=== PATIENT | male | born 1975 | race Caucasian/White ===

== ENCOUNTER 2022-07-05 23:38 | Inpatient (IN) | payer OTHER ==
[2022-07-06] MEDS ORDERED: levETIRAcetam 500 MG/5 ML INJECTION VIAL IVPB ONE ×4 (00:02→10:43)
[2022-07-06 00:59] LABS: BASO % 0.7 % (0-2.0); EOS % 1.4 % (0-4.5); HEMATOCRIT 38.5 % (35.4-49); LYMPH % 24.7 % (8-40); MCH 32.5 pg (25.7-33.7); MCHC 33.8 g/dl (32.0-35.9); MEAN CELL VOLUME 96.3 fl (80-96); MEAN PLT VOLUME 9.4 fl (7.5-11.1); MONO % 11.3 % (3.8-10.2); NEUT % 61.9 % (42.8-82.8); PLATELET COUNT 233 10^3/uL (134-434); RDW 12.9 % (11.9-15.9); WHITE BLOOD COUNT 6.9 K/mm3 (4.0-10.0)
[2022-07-06 01:20] LABS: ALBUMIN 3.6 g/dl (3.4-5.0); BLOOD UREA NITROGEN 13.8 mg/dL (7-18); CALCIUM 8.6 mg/dL (8.5-10.1)
[2022-07-06 01:24] LABS: CREATININE 0.6 mg/dL (0.55-1.3)
[2022-07-06 01:26] LABS: BILIRUBIN,TOTAL 0.8 mg/dL (0.2-1); TOT PROT 6.8 g/dl (6.4-8.2)
[2022-07-06] MEDS ORDERED: SODIUM CHLORIDE 1,000 ML IV STA (04:27)
[2022-07-06] MEDS ORDERED: NICOTINE 14 MG/24 HOURS TOPICAL PATCH TD PRN (06:29)
[2022-07-06 08:20] LABS: HEMATOCRIT 38.6 % (35.4-49); MCH 32.6 pg (25.7-33.7); MCHC 33.7 g/dl (32.0-35.9); MEAN CELL VOLUME 96.6 fl (80-96); MEAN PLT VOLUME 9.8 fl (7.5-11.1); PLATELET COUNT 223 10^3/uL (134-434); RDW 12.5 % (11.9-15.9); WHITE BLOOD COUNT 5.7 K/mm3 (4.0-10.0)
[2022-07-06 08:46] LABS: CHLORIDE 106 mmol/L (98-107); SODIUM 138 mmol/L (136-145)
[2022-07-06 08:49] LABS: ALBUMIN 3.4 g/dl (3.4-5.0); ANION GAP 3 MMOL/L (8-16); CALCIUM 8.7 mg/dL (8.5-10.1); CO2 29 mmol/L (21-32)
[2022-07-06 08:50] LABS: BLOOD UREA NITROGEN 12.6 mg/dL (7-18); GLUCOSE,RANDOM 74 mg/dL (74-106)
[2022-07-06 08:53] LABS: BILIRUBIN,TOTAL 0.7 mg/dL (0.2-1); CREATININE 0.6 mg/dL (0.55-1.3); PHOSPHOROUS 3.4 mg/dL (2.5-4.9); SGOT/AST 22 U/L (15-37); SGPT/ALT 16 U/L (13-61); TOT PROT 6.4 g/dl (6.4-8.2)
[2022-07-06 08:54] LABS: ALK PHOS 60 U/L (45-117)
[2022-07-06] MEDS ORDERED: LORazepam 1 MG TABLET PO PRN (10:08)
[2022-07-06] MEDS ORDERED: LORazepam 2 MG/ML SDV VIAL IVPUSH ONE (10:30)
[2022-07-06] MEDS ORDERED: LORazepam 2 MG/ML SDV VIAL IVPB PRN (10:31)
[2022-07-06] MEDS ORDERED: ENOXAPARIN NA (PORCINE) 40 MG/0.4 ML DISP.SYRIN SQ ONE (10:36)
[2022-07-06] MEDS ORDERED: NICOTINE 14 MG/24 HOURS TOPICAL PATCH TD ONE (10:36)
[2022-07-06] MEDS: ENOXAPARIN NA (PORCINE) 40 MG/0.4 ML DISP.SYRIN SQ SCH (10:49)
[2022-07-06] MEDS: levETIRAcetam 500 MG/5 ML INJECTION VIAL IVPB SCH ×3 (10:49→23:00)
[2022-07-06 15:04] VITALS: BMI 18.8
[2022-07-06] MEDS ORDERED: ACETAMINOPHEN 1000 MG/100 ML BAG IVPB PRN (20:36)
[2022-07-07] MEDS: ENOXAPARIN NA (PORCINE) 40 MG/0.4 ML DISP.SYRIN SQ SCH (09:10)
[2022-07-07] MEDS: levETIRAcetam 500 MG/5 ML INJECTION VIAL IVPB SCH ×2 (09:10→23:13)
[2022-07-07] MEDS: LORazepam 2 MG/ML SDV VIAL IVPB PRN ×2 (09:11→19:31)
[2022-07-07] MEDS ORDERED: chlordiazePOXIDE HCL 25 MG CAPSULE PO PRN (12:51)
[2022-07-07] MEDS: chlordiazePOXIDE HCL 25 MG CAPSULE PO SCH ×3 (13:23→23:12)
[2022-07-07] MEDS ORDERED: PHENobarbital SODIUM 65 MG/1 ML VIAL IVPB ONE (19:30)
[2022-07-07] MEDS ORDERED: LORazepam 2 MG/ML SDV VIAL IVPB PRN (19:34)
[2022-07-07] MEDS ORDERED: LORazepam 2 MG/ML SDV VIAL IVPUSH ONE ×2 (19:38→21:39)
[2022-07-07] MEDS ORDERED: SODIUM CHLORIDE 1,000 ML IV STA ×2 (19:42→19:50)
[2022-07-07 21:03] LABS: METHADONE, UR NEGATIVE (NEGATIVE); URINE AMPHETAMINES NEGATIVE (NEGATIVE)
[2022-07-07 21:04] LABS: COCAINE, UR NEGATIVE (NEGATIVE); OPIATES, URI NEGATIVE (NEGATIVE); PHENCYCLIDINE,URINE NEGATIVE (NEGATIVE)
[2022-07-07 21:12] LABS: URINE APPEARANCE CLEAR; URINE BILIRUBIN NEGATIVE (NEGATIVE); URINE COLOR DK YELLOW; URINE GLUCOSE (UA) NEGATIVE (NEGATIVE); URINE KETONE TRACE (NEGATIVE); URINE LEUK ESTERASE NEGATIVE (NEGATIVE); URINE NITRITE NEGATIVE (NEGATIVE); URINE PROTEIN TRACE (NEGATIVE)
[2022-07-07 21:23] LABS: URINE BARBITURATES POSITIVE (NEGATIVE); URINE BENZODIAZEPINES POSITIVE (NEGATIVE)
[2022-07-07] MEDS: NICOTINE 21 MG/24 HOURS TOPICAL PATCH TD SCH (23:11)
[2022-07-07] MEDS: THIAMINE HCL 200 MG/2 ML VIAL IVPB SCH (23:12)
[2022-07-07] MEDS: PHENobarbital SODIUM 65 MG/1 ML VIAL IVPUSH SCH (23:14)
[2022-07-08] MEDS: KCL 10 MEQ IVPB 10 MEQ/100 ML INFUS.BAG IVPB SCH ×5 (02:18→05:44)
[2022-07-08] MEDS: SODIUM CHLORIDE 1,000 ML IV SCH ×2 (02:18→22:01)
[2022-07-08] MEDS: chlordiazePOXIDE HCL 25 MG CAPSULE PO SCH ×6 (05:44→22:41)
[2022-07-08] MEDS: PHENobarbital SODIUM 65 MG/1 ML VIAL IVPUSH SCH ×3 (06:11→17:08)
[2022-07-08] MEDS: THIAMINE HCL 200 MG/2 ML VIAL IVPB SCH ×3 (06:12→22:01)
[2022-07-08] MEDS: ENOXAPARIN NA (PORCINE) 40 MG/0.4 ML DISP.SYRIN SQ SCH (09:36)
[2022-07-08] MEDS: levETIRAcetam 500 MG/5 ML INJECTION VIAL IVPB SCH ×2 (09:36→21:29)
[2022-07-08] MEDS: NICOTINE 21 MG/24 HOURS TOPICAL PATCH TD SCH (09:36)
[2022-07-08] MEDS ORDERED: LORazepam 2 MG/ML SDV VIAL IVPUSH ONE ×2 (10:15→11:00)
[2022-07-08] MEDS ORDERED: HALOPERIDOL LACTATE 5 MG/ML IM ONE ×2 (10:33→10:45)
[2022-07-08] MEDS ORDERED: HALOPERIDOL LACTATE 5 MG/ML IM PRN (14:30)
[2022-07-09] MEDS: chlordiazePOXIDE HCL 25 MG CAPSULE PO SCH ×4 (04:11→21:39)
[2022-07-09] MEDS: THIAMINE HCL 200 MG/2 ML VIAL IVPB SCH ×3 (05:34→23:11)
[2022-07-09] MEDS: NICOTINE 21 MG/24 HOURS TOPICAL PATCH TD SCH (09:50)
[2022-07-09] MEDS: ENOXAPARIN NA (PORCINE) 40 MG/0.4 ML DISP.SYRIN SQ SCH (09:50)
[2022-07-09] MEDS: levETIRAcetam 500 MG/5 ML INJECTION VIAL IVPB SCH ×2 (09:50→21:38)
[2022-07-09 12:20] LABS: BASO % 0.6 % (0-2.0); EOS % 1.5 % (0-4.5); HEMATOCRIT 40.7 % (35.4-49); HEMOGLOBIN 13.7 GM/dL (11.7-16.9); LYMPH % 14.9 % (8-40); MCH 32.1 pg (25.7-33.7); MCHC 33.7 g/dl (32.0-35.9); MEAN CELL VOLUME 95.3 fl (80-96); MEAN PLT VOLUME 9.5 fl (7.5-11.1); MONO % 7.1 % (3.8-10.2); NEUT % 75.9 % (42.8-82.8); PLATELET COUNT 210 10^3/uL (134-434); RBC 4.27 M/mm3 (4.00-5.60); RDW 12.4 % (11.9-15.9); WHITE BLOOD COUNT 6.1 K/mm3 (4.0-10.0)
[2022-07-09 12:52] LABS: ALBUMIN 3.2 g/dl (3.4-5.0); BLOOD UREA NITROGEN 3.6 mg/dL (7-18); CALCIUM 8.4 mg/dL (8.5-10.1); MAGNESIUM 1.8 mg/dL (1.8-2.4)
[2022-07-09 12:55] LABS: CREATININE 0.6 mg/dL (0.55-1.3)
[2022-07-09 12:57] LABS: BILIRUBIN,TOTAL 0.4 mg/dL (0.2-1)
[2022-07-09] MEDS ORDERED: chlordiazePOXIDE HCL 25 MG CAPSULE PO PRN (18:30)
[2022-07-09] MEDS ORDERED: LORazepam 2 MG/ML SDV VIAL IVPB PRN (18:30)
[2022-07-09] MEDS ORDERED: HALOPERIDOL LACTATE 5 MG/ML IM PRN (18:30)
[2022-07-09] MEDS: LORazepam 2 MG/ML SDV VIAL IVPB PRN (20:00)
[2022-07-09] MEDS ORDERED: PHENobarbital SODIUM 65 MG/1 ML VIAL IVPUSH ONE (20:19)
[2022-07-09] MEDS ORDERED: LORazepam 2 MG/ML SDV VIAL IVPUSH ONE (20:27)
[2022-07-09] MEDS ORDERED: levETIRAcetam 500 MG TABLET (FP) PO SCH (22:00)
[2022-07-09] MEDS ORDERED: chlordiazePOXIDE HCL 25 MG CAPSULE PO SCH (23:00)
[2022-07-10] MEDS ORDERED: chlordiazePOXIDE HCL 10 MG CAPSULE PO PRN ×2
[2022-07-10] MEDS: PHENobarbital SODIUM 65 MG/1 ML VIAL IVPUSH SCH ×3 (00:56→11:53)
[2022-07-10] MEDS ORDERED: chlordiazePOXIDE HCL 10 MG CAPSULE PO SCH ×2 (05:00)
[2022-07-10] MEDS: chlordiazePOXIDE HCL 25 MG CAPSULE PO SCH ×2 (05:26→17:11)
[2022-07-10] MEDS: THIAMINE HCL 200 MG/2 ML VIAL IVPB SCH ×3 (05:27→22:55)
[2022-07-10] MEDS: ENOXAPARIN NA (PORCINE) 40 MG/0.4 ML DISP.SYRIN SQ SCH (09:22)
[2022-07-10] MEDS: NICOTINE 21 MG/24 HOURS TOPICAL PATCH TD SCH (09:22)
[2022-07-10] MEDS: levETIRAcetam 500 MG/5 ML INJECTION VIAL IVPB SCH ×2 (09:23→21:38)
[2022-07-10 15:28] LABS: BASO % 0.3 % (0-2.0); EOS % 1.1 % (0-4.5); HEMOGLOBIN 13.9 GM/dL (11.7-16.9); LYMPH % 17.3 % (8-40); MCH 32.7 pg (25.7-33.7); MEAN CELL VOLUME 95.9 fl (80-96); MEAN PLT VOLUME 9.6 fl (7.5-11.1); MONO % 7.2 % (3.8-10.2); NEUT % 74.1 % (42.8-82.8); PLATELET COUNT 210 10^3/uL (134-434); RBC 4.27 M/mm3 (4.00-5.60); RDW 12.6 % (11.9-15.9); WHITE BLOOD COUNT 7.2 K/mm3 (4.0-10.0)
[2022-07-10 15:45] LABS: BLOOD UREA NITROGEN 5.9 mg/dL (7-18)
[2022-07-10 15:46] LABS: ALBUMIN 3.3 g/dl (3.4-5.0); MAGNESIUM 1.8 mg/dL (1.8-2.4)
[2022-07-10 15:49] LABS: CREATININE 0.9 mg/dL (0.55-1.3)
[2022-07-10 15:50] LABS: BILIRUBIN,TOTAL 0.4 mg/dL (0.2-1); TOT PROT 6.5 g/dl (6.4-8.2)
[2022-07-10] MEDS: LORazepam 2 MG/ML SDV VIAL IVPB PRN (18:23)
[2022-07-11] MEDS: chlordiazePOXIDE HCL 25 MG CAPSULE PO SCH ×5 (00:23→22:27)
[2022-07-11] MEDS ORDERED: chlordiazePOXIDE HCL 10 MG CAPSULE PO SCH ×2 (05:00)
[2022-07-11] MEDS: THIAMINE HCL 200 MG/2 ML VIAL IVPB SCH ×3 (05:25→22:34)
[2022-07-11] MEDS: levETIRAcetam 500 MG/5 ML INJECTION VIAL IVPB SCH (10:18)
[2022-07-11] MEDS: NICOTINE 21 MG/24 HOURS TOPICAL PATCH TD SCH (10:19)
[2022-07-11] MEDS: ENOXAPARIN NA (PORCINE) 40 MG/0.4 ML DISP.SYRIN SQ SCH (10:20)
[2022-07-11] MEDS: LORazepam 2 MG/ML SDV VIAL IVPB PRN (21:33)
[2022-07-11] MEDS ORDERED: HALOPERIDOL LACTATE 5 MG/ML IM ONE (22:16)
[2022-07-11] MEDS: levETIRAcetam 500 MG TABLET (FP) PO SCH (22:26)
[2022-07-11] MEDS: PHENobarbital SODIUM 65 MG/1 ML VIAL IVPUSH ONE (22:42)
[2022-07-11] MEDS ORDERED: PHENobarbital SODIUM 65 MG/1 ML VIAL IVPB ONE (23:00)
[2022-07-12] MEDS: PHENobarbital SODIUM 65 MG/1 ML VIAL IVPUSH ONE
[2022-07-12] MEDS ORDERED: chlordiazePOXIDE HCL 10 MG CAPSULE PO ONE ×2 (05:00)
[2022-07-12] MEDS: chlordiazePOXIDE HCL 25 MG CAPSULE PO SCH ×2 (05:19→10:18)
[2022-07-12] MEDS: THIAMINE HCL 200 MG/2 ML VIAL IVPB SCH (05:21)
[2022-07-12] MEDS: NICOTINE 21 MG/24 HOURS TOPICAL PATCH TD SCH (10:16)
[2022-07-12] MEDS: MULTIVITAMINS (DAILY MVI) TABLET (FP) PO SCH (10:16)
[2022-07-12] MEDS: ENOXAPARIN NA (PORCINE) 40 MG/0.4 ML DISP.SYRIN SQ SCH (10:16)
[2022-07-12] MEDS: levETIRAcetam 500 MG TABLET (FP) PO SCH ×2 (10:16→22:34)
[2022-07-12] MEDS ORDERED: chlordiazePOXIDE HCL 25 MG CAPSULE PO SCH (12:45)
[2022-07-12] MEDS: chlordiazePOXIDE HCL 10 MG CAPSULE PO SCH ×3 (14:51→22:33)
[2022-07-12] MEDS: THIAMINE HCL 100 MG TABLET (FP) PO SCH (16:50)
[2022-07-13 08:30] LABS: BASO % 0.5 % (0-2.0); EOS % 1.2 % (0-4.5); HEMATOCRIT 41.7 % (35.4-49); HEMOGLOBIN 14.2 GM/dL (11.7-16.9); LYMPH % 28.2 % (8-40); MCH 32.4 pg (25.7-33.7); MEAN CELL VOLUME 95.4 fl (80-96); MEAN PLT VOLUME 10.1 fl (7.5-11.1); MONO % 8.8 % (3.8-10.2); NEUT % 61.3 % (42.8-82.8); PLATELET COUNT 226 10^3/uL (134-434); RBC 4.37 M/mm3 (4.00-5.60); RDW 12.2 % (11.9-15.9)
[2022-07-13 08:44] LABS: ALBUMIN 3.5 g/dl (3.4-5.0); BLOOD UREA NITROGEN 12.9 mg/dL (7-18); CALCIUM 8.9 mg/dL (8.5-10.1)
[2022-07-13 08:48] LABS: BILIRUBIN,TOTAL 0.4 mg/dL (0.2-1); CREATININE 0.7 mg/dL (0.55-1.3)
[2022-07-13 08:49] LABS: TOT PROT 6.8 g/dl (6.4-8.2)
[2022-07-13] MEDS: levETIRAcetam 500 MG TABLET (FP) PO SCH ×2 (09:30→21:35)
[2022-07-13] MEDS: chlordiazePOXIDE HCL 10 MG CAPSULE PO SCH (09:30)
[2022-07-13] MEDS: ENOXAPARIN NA (PORCINE) 40 MG/0.4 ML DISP.SYRIN SQ SCH (09:30)
[2022-07-13] MEDS: THIAMINE HCL 100 MG TABLET (FP) PO SCH (09:31)
[2022-07-13] MEDS: MULTIVITAMINS (DAILY MVI) TABLET (FP) PO SCH (09:31)
[2022-07-13] MEDS: NICOTINE 21 MG/24 HOURS TOPICAL PATCH TD SCH (09:31)
[2022-07-13] MEDS ORDERED: chlordiazePOXIDE HCL 10 MG CAPSULE PO PRN (09:40)
[2022-07-14] MEDS: MULTIVITAMINS (DAILY MVI) TABLET (FP) PO SCH (09:15)
[2022-07-14] MEDS: levETIRAcetam 500 MG TABLET (FP) PO SCH ×2 (09:15→21:06)
[2022-07-14] MEDS: THIAMINE HCL 100 MG TABLET (FP) PO SCH (09:16)
[2022-07-14] MEDS: NICOTINE 21 MG/24 HOURS TOPICAL PATCH TD SCH (09:16)
[2022-07-14] MEDS: ENOXAPARIN NA (PORCINE) 40 MG/0.4 ML DISP.SYRIN SQ SCH (09:16)
[2022-07-14] MEDS ORDERED: chlordiazePOXIDE 5 MG CAPSULE PO PRN (15:09)
[2022-07-15 06:41] VITALS: RESP 18
[2022-07-15 07:19] LABS: BASO % 0.5 % (0-2.0); EOS % 1.4 % (0-4.5); HEMATOCRIT 42.3 % (35.4-49); HEMOGLOBIN 14.5 GM/dL (11.7-16.9); LYMPH % 34.6 % (8-40); MCH 32.4 pg (25.7-33.7); MCHC 34.2 g/dl (32.0-35.9); MEAN CELL VOLUME 94.9 fl (80-96); MEAN PLT VOLUME 10.2 fl (7.5-11.1); MONO % 9.8 % (3.8-10.2); NEUT % 53.7 % (42.8-82.8); PLATELET COUNT 253 10^3/uL (134-434); RBC 4.46 M/mm3 (4.00-5.60); RDW 12.1 % (11.9-15.9); WHITE BLOOD COUNT 5.5 K/mm3 (4.0-10.0)
[2022-07-15 07:43] LABS: CALCIUM 9.3 mg/dL (8.5-10.1)
[2022-07-15 07:44] LABS: BLOOD UREA NITROGEN 18.9 mg/dL (7-18)
[2022-07-15 07:47] LABS: CREATININE 0.7 mg/dL (0.55-1.3)
[2022-07-15] MEDS: MULTIVITAMINS (DAILY MVI) TABLET (FP) PO SCH (09:34)
[2022-07-15] MEDS: THIAMINE HCL 100 MG TABLET (FP) PO SCH (09:34)
[2022-07-15] MEDS: levETIRAcetam 500 MG TABLET (FP) PO SCH (09:35)
[2022-07-15] MEDS: NICOTINE 21 MG/24 HOURS TOPICAL PATCH TD SCH (09:35)
[2022-07-15] MEDS: ENOXAPARIN NA (PORCINE) 40 MG/0.4 ML DISP.SYRIN SQ SCH (09:35)
[2022-07-15 18:26] VITALS: BP 105/81; PULSE 55; TEMP 97.6
== END 2022-07-15 19:26 | disposition left against medical advice (07) | DRG 53 ==
LOC: JER 23:38 → JERBED 07-06 02:18 → OBSVTOIN 07-06 04:46 → JERBED 07-06 13:59 → J8W 07-06 14:45 → J4S 07-08 18:15
PROVIDERS: ADMIT Internal Medicine; ATTEND Internal Medicine
DX: G40.909 Epilepsy, unspecified, not intractable, without status epilepticus (principal); F17.210 Nicotine dependence, cigarettes, uncomplicated; R42 Dizziness and giddiness; R45.6 Violent behavior; F10.10 Alcohol abuse, uncomplicated; R00.1 Bradycardia, unspecified
CPT/HCPCS: 0241U-QW; 36415; 70450-TC; 80048; 80053; 80177; 80307; 81003; 82550; 82553; 82962; 83605; 83735; 84100; 85025; 85027; 93005; 93010; 93306-TC; 97116-GP; 97162-GP; 99285-25; G0378

== ENCOUNTER 2022-08-19 18:38 | Inpatient (IN) | payer OTHER ==
[2022-08-19] MEDS ORDERED: levETIRAcetam 500 MG/5 ML INJECTION VIAL IVPB ONE ×2 (19:19)
[2022-08-19] MEDS ORDERED: LORazepam 2 MG/ML SDV VIAL IVPUSH ONE (19:19)
[2022-08-19] MEDS ORDERED: SODIUM CHLORIDE 0.9% 500 ML INFUS.BAG IV ONE (20:05)
[2022-08-19 21:43] LABS: EOS % 1.3 % (0-4.5); HEMATOCRIT 37.2 % (35.4-49); HEMOGLOBIN 12.7 GM/dL (11.7-16.9); LYMPH % 32.2 % (8-40); MCH 31.8 pg (25.7-33.7); MCHC 34.2 g/dl (32.0-35.9); MEAN PLT VOLUME 9.1 fl (7.5-11.1); MONO % 7.3 % (3.8-10.2); NEUT % 58.2 % (42.8-82.8); PLATELET COUNT 237 10^3/uL (134-434); RBC 4.01 M/mm3 (4.00-5.60); RDW 12.2 % (11.9-15.9); WHITE BLOOD COUNT 6.6 K/mm3 (4.0-10.0)
[2022-08-19 22:04] LABS: URINE APPEARANCE CLEAR; URINE BILIRUBIN NEGATIVE (NEGATIVE); URINE COLOR YELLOW; URINE GLUCOSE (UA) NEGATIVE (NEGATIVE); URINE KETONE NEGATIVE (NEGATIVE); URINE LEUK ESTERASE NEGATIVE (NEGATIVE); URINE NITRITE NEGATIVE (NEGATIVE); URINE PROTEIN NEGATIVE (NEGATIVE)
[2022-08-19 22:09] LABS: CHLORIDE 109 mmol/L (98-107); SODIUM 139 mmol/L (136-145)
[2022-08-19 22:11] LABS: CALCIUM 8.5 mg/dL (8.5-10.1)
[2022-08-19 22:12] LABS: ALBUMIN 3.2 g/dl (3.4-5.0); ANION GAP 5 MMOL/L (8-16); BLOOD UREA NITROGEN 15.4 mg/dL (7-18); CO2 26 mmol/L (21-32); GLUCOSE,RANDOM 93 mg/dL (74-106)
[2022-08-19 22:15] LABS: CREATININE 0.5 mg/dL (0.55-1.3); SGOT/AST 17 U/L (15-37); SGPT/ALT 16 U/L (13-61)
[2022-08-19 22:17] LABS: BILIRUBIN,TOTAL 0.2 mg/dL (0.2-1); TOT PROT 6.5 g/dl (6.4-8.2)
[2022-08-19 22:18] LABS: ALK PHOS 88 U/L (45-117)
[2022-08-19 22:25] LABS: COCAINE, UR NEGATIVE (NEGATIVE); OPIATES, URI NEGATIVE (NEGATIVE)
[2022-08-19 22:26] LABS: METHADONE, UR NEGATIVE (NEGATIVE); PHENCYCLIDINE,URINE NEGATIVE (NEGATIVE); URINE AMPHETAMINES NEGATIVE (NEGATIVE); URINE BARBITURATES NEGATIVE (NEGATIVE); URINE BENZODIAZEPINES NEGATIVE (NEGATIVE)
[2022-08-19 22:42] LABS: ARTERIAL BLD GAS O2 SATURATION 96.9 % (95-98); ARTERIAL BLOOD GAS BASE EXCESS -1.4 mmol/L (-2-2); ARTERIAL BLOOD GAS PO2 91.5 mmHg (80-100)
[2022-08-20 03:29] VITALS: BMI 18.9
[2022-08-20 09:12] LABS: HEMATOCRIT 39.5 % (35.4-49); HEMOGLOBIN 13.4 GM/dL (11.7-16.9); MCH 31.3 pg (25.7-33.7); MCHC 33.9 g/dl (32.0-35.9); MEAN CELL VOLUME 92.1 fl (80-96); MEAN PLT VOLUME 9.9 fl (7.5-11.1); PLATELET COUNT 261 10^3/uL (134-434); RBC 4.29 M/mm3 (4.00-5.60); RDW 12.2 % (11.9-15.9); WHITE BLOOD COUNT 5.8 K/mm3 (4.0-10.0)
[2022-08-20 09:19] LABS: CALCIUM 8.7 mg/dL (8.5-10.1)
[2022-08-20 09:20] LABS: ALBUMIN 3.2 g/dl (3.4-5.0); BLOOD UREA NITROGEN 12.6 mg/dL (7-18)
[2022-08-20 09:23] LABS: CREATININE 0.6 mg/dL (0.55-1.3)
[2022-08-20 09:24] LABS: BILIRUBIN,TOTAL 0.5 mg/dL (0.2-1); MAGNESIUM 1.9 mg/dL (1.8-2.4); TOT PROT 6.5 g/dl (6.4-8.2)
[2022-08-20] MEDS ORDERED: FOLIC ACID 1 MG TABLET (FP) PO SCH (10:00)
[2022-08-20] MEDS: LORazepam 2 MG/ML SDV VIAL IVPUSH PRN (11:22)
[2022-08-20] MEDS: THIAMINE HCL 100 MG TABLET (FP) PO SCH (11:22)
[2022-08-20] MEDS: levETIRAcetam 500 MG TABLET (FP) PO SCH ×2 (11:22→22:01)
[2022-08-20] MEDS: ENOXAPARIN NA (PORCINE) 40 MG/0.4 ML DISP.SYRIN SQ SCH (11:22)
[2022-08-20] MEDS: MULTIVITAMINS (DAILY MVI) TABLET (FP) PO SCH (11:22)
[2022-08-20] MEDS: PRIMIDONE 50 MG TABLET PO SCH (22:01)
[2022-08-21 09:34] LABS: BASO % 0.5 % (0-2.0); EOS % 0.3 % (0-4.5); HEMOGLOBIN 14.1 GM/dL (11.7-16.9); LYMPH % 24.6 % (8-40); MCH 31.6 pg (25.7-33.7); MCHC 34.3 g/dl (32.0-35.9); MEAN CELL VOLUME 92.3 fl (80-96); MEAN PLT VOLUME 9.6 fl (7.5-11.1); NEUT % 65.6 % (42.8-82.8); PLATELET COUNT 268 10^3/uL (134-434); RBC 4.44 M/mm3 (4.00-5.60); RDW 12.2 % (11.9-15.9)
[2022-08-21] MEDS: THIAMINE HCL 100 MG TABLET (FP) PO SCH (09:51)
[2022-08-21] MEDS: levETIRAcetam 500 MG TABLET (FP) PO SCH ×2 (09:51→21:31)
[2022-08-21] MEDS: MULTIVITAMINS (DAILY MVI) TABLET (FP) PO SCH (09:51)
[2022-08-21] MEDS: CITALOPRAM HYDROBROMIDE 10 MG TABLET PO SCH (09:51)
[2022-08-21] MEDS: ENOXAPARIN NA (PORCINE) 40 MG/0.4 ML DISP.SYRIN SQ SCH (09:51)
[2022-08-21 10:02] LABS: CALCIUM 9.1 mg/dL (8.5-10.1)
[2022-08-21 10:03] LABS: ALBUMIN 3.6 g/dl (3.4-5.0); BLOOD UREA NITROGEN 15.2 mg/dL (7-18)
[2022-08-21 10:06] LABS: CREATININE 0.8 mg/dL (0.55-1.3)
[2022-08-21 10:08] LABS: BILIRUBIN,TOTAL 0.6 mg/dL (0.2-1); TOT PROT 7.2 g/dl (6.4-8.2)
[2022-08-21 13:18] VITALS: RESP 20
[2022-08-21] MEDS: PRIMIDONE 50 MG TABLET PO SCH (21:31)
[2022-08-22] MEDS: levETIRAcetam 500 MG TABLET (FP) PO SCH (09:44)
[2022-08-22] MEDS: CITALOPRAM HYDROBROMIDE 10 MG TABLET PO SCH (09:44)
[2022-08-22] MEDS: ENOXAPARIN NA (PORCINE) 40 MG/0.4 ML DISP.SYRIN SQ SCH (09:44)
[2022-08-22] MEDS: MULTIVITAMINS (DAILY MVI) TABLET (FP) PO SCH (09:44)
[2022-08-22] MEDS: LORazepam 2 MG/ML SDV VIAL IVPUSH PRN (09:44)
[2022-08-22] MEDS: THIAMINE HCL 100 MG TABLET (FP) PO SCH (09:44)
[2022-08-22 09:49] LABS: BASO % 0.5 % (0-2.0); EOS % 0.3 % (0-4.5); HEMATOCRIT 41.7 % (35.4-49); HEMOGLOBIN 14.4 GM/dL (11.7-16.9); LYMPH % 25.5 % (8-40); MCH 31.6 pg (25.7-33.7); MCHC 34.6 g/dl (32.0-35.9); MEAN CELL VOLUME 91.6 fl (80-96); MEAN PLT VOLUME 9.9 fl (7.5-11.1); MONO % 9.1 % (3.8-10.2); NEUT % 64.6 % (42.8-82.8); PLATELET COUNT 269 10^3/uL (134-434); RBC 4.55 M/mm3 (4.00-5.60); RDW 12.2 % (11.9-15.9); WHITE BLOOD COUNT 5.2 K/mm3 (4.0-10.0)
[2022-08-22 10:08] LABS: CALCIUM 9.6 mg/dL (8.5-10.1)
[2022-08-22 10:09] LABS: BLOOD UREA NITROGEN 15.1 mg/dL (7-18); MAGNESIUM 1.9 mg/dL (1.8-2.4)
[2022-08-22 10:10] LABS: ALBUMIN 3.7 g/dl (3.4-5.0)
[2022-08-22 10:12] LABS: CREATININE 0.9 mg/dL (0.55-1.3)
[2022-08-22 10:13] LABS: BILIRUBIN,TOTAL 0.5 mg/dL (0.2-1); TOT PROT 7.6 g/dl (6.4-8.2)
[2022-08-22] MEDS ORDERED: LORazepam 1 MG TABLET PO PRN (11:46)
[2022-08-22 14:59] VITALS: BP 97/69; PULSE 77; TEMP 97.8
== END 2022-08-22 16:26 | disposition home or self-care (01) | DRG 53 ==
LOC: JER 18:38 → JERBED 08-20 00:06 → J8W 08-20 02:31
PROVIDERS: ADMIT Internal Medicine; ATTEND Nurse Practitioner Family
DX: G40.209 Localization-related (focal) (partial) symptomatic epilepsy and epileptic syndromes with complex partial seizures, not intractable, without status epilepticus (principal); G93.41 Metabolic encephalopathy; F32.A Depression, unspecified; G25.0 Essential tremor; F10.10 Alcohol abuse, uncomplicated; Z91.148 Patient's other noncompliance with medication regimen for other reason
CPT/HCPCS: 0241U-QW; 36415; 36600; 70450-TC; 71045-TC-FY; 72125-TC; 80053; 80177; 80307; 81003; 82550; 82803; 82962; 83605; 83735; 84100; 84484; 85025; 85027; 87086; 93005; 93010; 99285-25

== ENCOUNTER 2022-08-29 13:03 | Emergency (ER) | payer OTHER ==
[2022-08-29 13:44] VITALS: RESP 18; TEMP 98.8; BMI 18.3
[2022-08-29] MEDS ORDERED: levETIRAcetam 500 MG/5 ML INJECTION VIAL IVPB ONE ×2 (13:47→13:53)
[2022-08-29 15:21] LABS: BASO % 0.4 % (0-2.0); EOS % 0.3 % (0-4.5); HEMATOCRIT 39.5 % (35.4-49); HEMOGLOBIN 13.4 GM/dL (11.7-16.9); LYMPH % 20.6 % (8-40); MCH 31.4 pg (25.7-33.7); MCHC 33.9 g/dl (32.0-35.9); MEAN CELL VOLUME 92.4 fl (80-96); MEAN PLT VOLUME 10.2 fl (7.5-11.1); MONO % 6.6 % (3.8-10.2); NEUT % 72.1 % (42.8-82.8); PLATELET COUNT 253 10^3/uL (134-434); RBC 4.28 M/mm3 (4.00-5.60); RDW 12.2 % (11.9-15.9); WHITE BLOOD COUNT 6.6 K/mm3 (4.0-10.0)
[2022-08-29 15:42] LABS: ALBUMIN 3.5 g/dl (3.4-5.0); BLOOD UREA NITROGEN 12.8 mg/dL (7-18); CALCIUM 9.1 mg/dL (8.5-10.1)
[2022-08-29 15:46] LABS: CREATININE 0.7 mg/dL (0.55-1.3); PHOSPHOROUS 2.6 mg/dL (2.5-4.9)
[2022-08-29 15:47] LABS: BILIRUBIN,TOTAL 0.4 mg/dL (0.2-1)
[2022-08-29 17:08] VITALS: BP 110/77; PULSE 72
== END 2022-08-29 17:35 | disposition home or self-care (01) ==
LOC: JER 13:03
PROC: 3E033GC Introduction of Other Therapeutic Substance into Peripheral Vein, Percutaneous Approach (ICD-10-PCS; principal; 2022-08-29)
DX: G40.89 Other seizures (principal); Z91.14 Patient's other noncompliance with medication regimen
CPT/HCPCS: 36415; 70450-TC; 71045-TC-FY; 80053; 80177; 82962; 83735; 84100; 84484; 85025; 93005; 93010; 99285-25